=== PATIENT | female | born 1985 | race Caucasian/White ===

== ENCOUNTER 2020-02-02 18:59 | Emergency (ER) | payer OTHER ==
[~2020-02-02] VITALS: Ht 170.2 cm; Wt 77.1 kg
[2020-02-02] MEDS ORDERED: PREDNISONE 20 M20 M1 PO (19:43)
[2020-02-02] MEDS ORDERED: NORCO 5-325 TA1 EAC2 PO (19:43)
[2020-02-02 20:01] VITALS: BP 131/93
== END 2020-02-02 20:01 | disposition home or self-care (01) ==
LOC: M.ERS 18:59
DX: S63.591A Other specified sprain of right wrist, initial encounter (principal); Z98.890 Other specified postprocedural states; X50.9XXA Other and unspecified overexertion or strenuous movements or postures, initial encounter; Y93.89 Activity, other specified; Y92.89 Other specified places as the place of occurrence of the external cause; Y99.8 Other external cause status

== ENCOUNTER 2020-02-22 00:38 | Emergency (ER) | payer OTHER ==
[~2020-02-22] VITALS: Ht 170.2 cm; Wt 77.1 kg
[~2020-02-22 00:38] MED LIST: NORCO 5-325 TA1 EAC2 PO; PREDNISONE 20 M20 M1 PO
[2020-02-22] MEDS ORDERED: MEDROLDOSEPACK PO (01:21)
[2020-02-22] MEDS ORDERED: LORCET 5-325 M1 EACH PO (01:21)
[2020-02-22 01:36] VITALS: BP 129/91
[2020-02-23] MEDS ORDERED: MEDROLDOSEPACK PO (16:09)
[2020-02-23] MEDS ORDERED: LORCET 5-325 M1 EACH PO (16:09)
[2020-02-23] MEDS ORDERED: CIPROFLOXIN HC2.5 M1 OPHTHALMIC (16:09)
== END 2020-02-22 01:37 | disposition home or self-care (01) ==
LOC: M.ERS 00:38
DX: G56.01 Carpal tunnel syndrome, right upper limb (principal); F17.210 Nicotine dependence, cigarettes, uncomplicated; Z98.890 Other specified postprocedural states

== ENCOUNTER 2020-02-23 15:42 | Emergency (ER) | payer OTHER ==
[~2020-02-23] VITALS: Ht 170.2 cm; Wt 76.7 kg
[~2020-02-23 15:42] MED LIST changes: +LORCET 5-325 M1 EACH PO; +MEDROLDOSEPACK PO
[2020-02-23] MEDS ORDERED: LORCET 5-325 M1 EACH PO (16:09)
[2020-02-23] MEDS ORDERED: CIPROFLOXIN HC2.5 M1 OPHTHALMIC (16:09)
[2020-02-23] MEDS ORDERED: MEDROLDOSEPACK PO (16:09)
[2020-02-23 16:14] VITALS: BP 119/83
== END 2020-02-23 16:15 | disposition home or self-care (01) ==
LOC: M.ERS 15:42
DX: H10.9 Unspecified conjunctivitis (principal); F17.210 Nicotine dependence, cigarettes, uncomplicated; Z98.890 Other specified postprocedural states

== ENCOUNTER 2020-11-22 19:12 | Emergency (ER) | payer OTHER ==
[~2020-11-22] VITALS: Ht 170.2 cm; Wt 77.1 kg
[~2020-11-22 19:12] MED LIST changes: +CIPROFLOXIN HC2.5 M1 OPHTHALMIC
[2020-11-22 19:53] LABS: ABSOLUTE BASOPHILS 0.1 thou/uL (0.0-0.2); ABSOLUTE EOSINOPHILS 0.1 thou/uL (0.0-0.7); ABSOLUTE LYMPHOCYTES 1.1 thou/uL (0.8-5.3); ABSOLUTE MONOCYTES 0.5 thou/uL (0.0-1.2); ABSOLUTE NEUTROPHILS 6.6 thou/uL (1.6-8.1); BASOPHILS 1.1 %; EOSINOPHILS 1.3 %; HEMATOCRIT 33.5 % (37.0-47.0); HEMOGLOBIN 11.3 gm/dL (12.0-15.0); LYMPHOCYTES 12.9 %; MCH 26.8 pg (26.0-34.0); MCHC 33.7 g/dL (28.0-37.0); MCV 79.6 fL (80.0-100.0); MONOCYTES 6.3 %; MPV 7.5 fl. (7.2-11.1); NUCLEATED RBCS 0 /100WBC; PLATELET COUNT* 393 thou/uL (150-400); POLYS 78.4 %; RBC 4.21 mil/uL (4.20-5.00); RDW-CV 14.7 % (10.5-14.5); WBC 8.5 thou/uL (4.0-11.0)
[2020-11-22 20:01] LABS: CALCIUM 8.9 mg/dL (8.5-10.1); CREATININE 0.5 mg/dL (0.6-1.3); POTASSIUM 3.2 mmol/L (3.5-5.1)
[2020-11-22 20:06] LABS: TOTAL BILIRUBIN 0.2 mg/dL (<0.1-1.0); TOTAL PROTEIN 7.6 g/dL (6.4-8.2)
[2020-11-22] MEDS ORDERED: NORCO5 PO (22:25)
[2020-11-22] MEDS ORDERED: VISTARIL 25 MG25 M1 PO (22:25)
[2020-11-22] MEDS ORDERED: DOXYCYCLINE 10100 MG PO (22:25)
[2020-11-22] MEDS ORDERED: MEDROLDOSEPACK PO (22:25)
[2020-11-22 22:44] VITALS: BP 108/64
== END 2020-11-22 22:44 | disposition home or self-care (01) ==
LOC: M.ERS 19:12
PROVIDERS: Physician Assistant
DX: M79.621 Pain in right upper arm (principal); L53.9 Erythematous condition, unspecified; M06.9 Rheumatoid arthritis, unspecified; F17.210 Nicotine dependence, cigarettes, uncomplicated; Z98.890 Other specified postprocedural states

== ENCOUNTER 2021-03-19 06:53 | Emergency (ER) | payer OTHER ==
[~2021-03-19] VITALS: Ht 167.6 cm; Wt 74.8 kg
[~2021-03-19 06:53] MED LIST changes: +DOXYCYCLINE 10100 MG PO; +NORCO5 PO; +VISTARIL 25 MG25 M1 PO
[2021-03-19] MEDS ORDERED: PREDNISONE 20 M20 M1 PO (07:14)
[2021-03-19] MEDS ORDERED: MOBIC7.5 MG PO (07:14)
[2021-03-19 07:28] VITALS: BP 147/88
== END 2021-03-19 07:28 | disposition home or self-care (01) ==
LOC: M.ERS 06:53
DX: M06.9 Rheumatoid arthritis, unspecified (principal); Z98.890 Other specified postprocedural states

== ENCOUNTER 2021-07-07 23:10 | Emergency (ER) | payer OTHER ==
[~2021-07-07] VITALS: Ht 170.2 cm; Wt 74.8 kg
[~2021-07-07 23:10] MED LIST changes: +MOBIC7.5 MG PO
[2021-07-08] MEDS ORDERED: MELOXICAM15 MG PO (00:13)
[2021-07-08] MEDS ORDERED: PREDNISONE50 MG PO (00:13)
[2021-07-08] MEDS ORDERED: APAP W/CODEINE1 TA2 PO (00:14)
[2021-07-08 00:59] VITALS: BP 128/74
== END 2021-07-08 01:03 | disposition home or self-care (01) ==
LOC: M.ERS 23:10
DX: M06.9 Rheumatoid arthritis, unspecified (principal); Z91.040 Latex allergy status